=== PATIENT | female | born 1950 | race Caucasian/White ===

== ENCOUNTER → 2017-12-11 | Outpatient (CLI) | payer MEDICARE ==
--- NOTE | 2017-12-14 16:47 | RT HOLTER TEST ---
FACILITY: [facility] PATIENT NAME: GISELA VAUGHAN : [id number] MR: [id number]: [id number] EXAM DATE: ORDERING PHYSICIAN: MILAD PARKS TECHNOLOGIST: TUCKER Hook-up date: 2017-12-11 13:10:00 Duration: 23:48:00 Test Indications: PALPITATIONS Medications: MAGNESIUM ASPIRINM ARMOUR [id number] QRS complexes 806 Ventricular ectopics which represent <1 % of total QRS comp. 8 Supraventricular ectopics which represent <1 % of total QRS comp. * Paced QRS complexes which represent % of total QRS comp. VENTRICULAR ECTOPY 796 Isolated 7 Bigeminal Cycles 5 Couplets 0 Runs 0 Beats in Runs * Beats LONGEST at * BPM at :: -- * Beats FASTEST at * BPM at :: -- SUPRAVENTRICULAR ECTOPY 8 Isolated 0 Couplets 0 Runs 0 Beats in Runs * Beats LONGEST at * BPM at :: -- * Beats FASTEST at * BPM at :: -- HEART RATES 43 MIN at 03:54:39 2017-12-12 73 AVG 136 MAX at 13:16:01 2017-12-11 LONGEST RR 1.592 secs at 05:27:08 2017-12-12 S-T LEVELS Channel 1 -12.800 mm MIN at 13:10:00 2017-12-11 -12.800 mm MAX at 13:10:00 2017-12-11 Channel 2 -12.800 mm MIN at 13:10:00 2017-12-11 -12.800 mm MAX at 13:10:00 2017-12-11 Channel 3 -12.800 mm MIN at 13:10:00 2017-12-11 -12.800 mm MAX at 13:10:00 2017-12-11 There were no reported symptoms during the test. The patient had occasional beats of ventricular ect opy and rare beats of supraventrcular ectopy. Confirmed by TABITHA MADRIGAL ([id number]) on 12/14/2017 2:26:46 PM Referred By: Overread By: TABITHA MADRIGAL
== END ==
LOC: RESP 12:45
PROVIDERS: ATTEND Internal Medicine
DX: R07.9 Chest pain, unspecified (principal); R00.2 Palpitations; Z79.899 Other long term (current) drug therapy
CPT/HCPCS: 93225; 93226